=== PATIENT | female | born 1985 | race American Indian/Alaskan Native ===

== ENCOUNTER 2017-03-09 00:17 | Inpatient (IN) | payer MEDICAID ==
--- NOTE | 2017-03-09 02:21 | OBHP ---
Datetime: 03/09/2017 02:11 IP Adm Impression: Term, intrauterine ; No Active Labor IP Adm Impression Other: Previous Section X1 IP Admit Plan: Admit to unit; Initiate Section protocol Admit Comment, IP Provider: 31yo by Section in [place], No documented scar. She present s with pelvic pressure and pain. care at [facility], EDC- 03/10/17. [place]- irregular contractions, FHR- Category 1, Cx- 0/0/-3 Assessment: IUP at 40wks Previous Section X1 Plan: Admit to LND Prepare for a repeat Section. Pelvic Type - PN: Adequate Extremities - PN: Normal Abdomen - PN: Normal Back - PN: Normal Breast - PN: Normal Lungs - PN: Normal Heart - PN: Normal Thyroid - PN: Normal Neurologic - PN: Normal HEENT - PN: Normal General - PN: Normal Presentation-Admit: Vertex FHR - Baseline A Provider: 130 Membranes, Provider: Intact Contraction Comments Provider: Irregular Comments, ACOG Physical Exam: Abd: Soft, NT, BS- present Gestation - Est Wks by US: 40.0 EGA AdmitDate IP: 40.2 IP Chief Complaint: Uterine contractions; Maternal discomfort NICHD Variability Prov Fetus A: Moderate 6-25bpm NICHD Accel Fetus A IP Provider: [id number] FHR Category Provider Fetus A: Category I NICHD Decel Fetus A IP Provider: None Dilatation, Provider: 0 Effacement, Provider: 0 Station, Provider: -3 Genitourinary Exam: Normal DTRs - PN: Normal
[2017-03-09 02:24] VITALS: BMI 24.2
[2017-03-09] MEDS ORDERED: cefOXitin IV 2 gm in Dextrose 2 GM/50 ML BAG IVPB ONE ×2 (02:24→05:23)
[2017-03-09] MEDS ORDERED: Sodium Citrate/Citric Acid 15 ml Sol PO ONE (02:24)
[2017-03-09] MEDS ORDERED: Lactated Ringer's 1,000 ML IV SCH (02:30)
[2017-03-09 03:05] LABS: BASO % 0.3 % (0.0-2.0); EOS # 0.2 K/uL (0.0-0.7); EOS % 2.3 % (0.0-4.0); HEMATOCRIT 35.2 % (34.0-47.0); LYMPH # 1.6 K/uL (1.0-4.3); LYMPH % 18.3 % (20.0-40.0); MEAN CELL VOLUME 86.4 fL (81.0-99.0); MEAN CORPUSCULAR HEMOGLOBIN 29.7 pg (27.0-31.0); MEAN CORPUSCULAR HGB CONC 34.4 g/dL (33.0-37.0); MEAN PLATELET VOLUME 7.5 fL (7.2-11.7); MONO # 0.9 K/uL (0.0-0.8); MONO % 10.7 % (0.0-10.0); RED CELL DISTRIBUTION WIDTH 12.9 % (11.5-14.5); WHITE BLOOD COUNT 8.8 K/uL (4.8-10.8)
[2017-03-09 03:18] LABS: CHLORIDE 103 mmol/L (98-107); POTASSIUM 3.9 mmol/L (3.6-5.2); SODIUM 137 mmol/L (132-148)
[2017-03-09 03:20] LABS: BILIRUBIN,TOTAL 0.4 mg/dL (0.2-1.3); GFR AFRICAN-AMERICAN > 60
[2017-03-09 03:21] LABS: ALB/GLOB RATIO 1.1 (1.0-2.1); ALKALINE PHOSPHATASE 158 U/L (38-126); ALT/SGPT 20 U/L (9-52); AST/SGOT 18 U/L (14-36); BLOOD UREA NITROGEN 6 mg/dL (7-17); CALCIUM 9.3 mg/dl (8.6-10.4); CARBON DIOXIDE 19 mmol/L (22-30); GLUCOSE,RANDOM 83 mg/dL (65-105); TOTAL PROTEIN 7.1 g/dL (6.3-8.3)
[2017-03-09 03:28] LABS: RBC URINE 3 /hpf (0-3); URINE BACTERIA MOD (<OCC); URINE BILIRUBIN NEGATIVE (NEGATIVE); URINE BLOOD 2+ (NEGATIVE); URINE COLOR Yellow (YELLOW); URINE GLUCOSE (UA) NORMAL (Normal); URINE KETONE NEGATIVE (NEGATIVE); URINE LEUKOCYTE ESTERASE NEG Leu/uL (Negative); URINE PROTEIN NEGATIVE (NEGATIVE); URINE UROBILINOGEN NORMAL mg/dL (0.2-1.0); WBC URINE 1 /hpf (0-5)
[2017-03-09] MEDS ORDERED: Oxytocin 20 units in LR 2,000 ML IV ONE (05:23)
[2017-03-09] MEDS ORDERED: Sodium Citrate/Citric Acid 15 ml Sol ONE (05:23)
[2017-03-09] MEDS ORDERED: Morphine 1 mg/ml preservative-free Inj(Duramorph) ONE (06:14)
--- NOTE | 2017-03-09 07:30 | OBDS ---
DELIVERY PERSONNEL Delivery Doctor: Radha Davis MD Scrub Nurse: Cathy Alicea OBT Network Operations Lead: Layla Nichols RN Anesthesiologist: DR HERNANDEZ MATERNAL INFORMATION Delivery Anesthesia: Spinal Medications in Delivery: PITOCIN Estimated Blood Loss (ml): 500 Placenta Cultured: No Maternal Complications: None Provider Comments: Uncomplicated Repeat Section with delivery of a viable male with BW of 6Ib 10oz scores of 9 and 9. LABOR SUMMARY EDC: 03/10/2017 00:00 No. Babies in Womb: 1 STAGES OF LABOR Stage 3 hrs: 0 Stage 3 min: 1 CSECTION DELIVERY Primary Indication: Repeat Elective Uterine Closure: Double-layer closure BABY A INFORMATION Delivery Date/Time: 03/09/2017 06:36 Method of Delivery: Born in Route : No : N/A Forceps: N/A Vacuum Extraction: N/A Shoulder Dystocia : No SHOULDER DYSTOCIA BABY A Infant Delivery Date/Time: 03/09/2017 06:36 PRESENTATION/POSITION BABY A Presentation: Cephalic Cephalic Presentation: Vertex Vertex Position: Left Occipital Anterior Breech Presentation: N/A PLACENTA INFORMATION BABY A Placenta Delivery Time : 03/09/2017 06:37 Placenta Method of Delivery: Manual Removal Placenta Status: Delivered SCORES BABY A Heart Rate 1 min: >100 bpm Resp Effort 1 min: Good Cry Reflex Irritability 1 min: Cough or Sneeze or Pulls Away Muscle Tone 1 min: Active Motion Color 1 min: Body [place], Extremities Blue SCORE 1 MIN: 9 Heart Rate 5 min: >100 bpm Resp Effort 5 min: Good Cry Reflex Irritability 5 min: Cough or Sneeze or Pulls Away Muscle Tone 5 min: Active Motion Color 5 min: Body [place], Extremities Blue SCORE 5 MIN: 9 INFANT INFORMATION BABY A Gestational Age at Delivery: 40.2 Gestational Status: Term Infant Outcome : Liveborn Condition : Stable Infant Sex: Male IDENTIFICATION/MEDS BABY A ID Band Number: [id number] Sensor Applied: Yes Sensor Number: [id number] Sensor Location : Left Leg; Left Arm WEIGHT/LENGTH BABY A Birthweight (gms): 3005 Weight (lb): 6 Infant Weight (oz): 10 Infant Length Inches: 19.50 Length cms: 49.5 CORD INFORMATION BABY A No. Cord Vessels: 3 Nuchal Cord : N/A Cord Blood Taken: Yes Suction: Mouth; Nose
--- NOTE | 2017-03-09 07:32 | PCM.SURG1 ---
Surgeon's Initial Post Op Note - Surgeon's Notes Surgeon: Dr Davis Principal Secretary: Dr Bonner Type of Anesthesia: Spinal Anesthesia Administered By: Dr Navarro Pre-Operative Diagnosis: IUP at 40wks with a previous Section Operative Findings: Live Male BW of 6 Ibs 10oz ,with scores of 9 and 9.Delivered in cephalic presentation. The uterus , ovaries and fallopian tubes appeared normal. The uterus had a 2X1.5X2cm fibroid noule on the middle of the posterior wall of the uterus. IVF Intake 1300mls. EBL- 500mls. Urine output -200mls Post-Operative Diagnosis: Same as preop diagnosis Operation Performed: Repeat Low Transverse Section. Specimen/Specimens Removed: Umbilical cord blood Estimated Blood Loss: EBL {In ML}: 500 Post-Op Condition: Good Date of Surgery/Procedure: 03/09/17 Time of Surgery/Procedure: 07:33
[2017-03-09] MEDS: Prenatal Multivit/Folic Acid/Iron Tab PO SCH (09:56)
--- NOTE | 2017-03-09 14:22 | OP ---
PROCEDURE DATE: 03/09/2017 PREOPERATIVE DIAGNOSIS: Intrauterine at 40 weeks with a previous section x1. POSTOPERATIVE DIAGNOSIS: Intrauterine at 40 weeks with a previous section x1. PROCEDURE DONE: Repeat low transverse section, performed on 03/09/2017. SURGEON: Dr. Servando Davis. SAMPLE CASE PORTER: Dr. Dooley. Assistance to this procedure was needed for exposure of tissues and help in the delivery of the baby. The drilling assistant remained with the procedure throughout its entire length. FINDINGS: A live male with weight of 6 pounds 10 ounces, scores of 9 in the first and fifth minutes. Baby was delivered in cephalic presentation. The uterus, ovaries, and fallopian tubes appeared normal. The uterus had a 2 x 1.5 x 2 cm fibroid nodule in the middle portion of the posterior wall of the uterus. IV FLUID INTAKE: 1300 mL. ESTIMATED BLOOD LOSS: 500 mL. URINE OUTPUT: 200 mL. COMPLICATIONS: There were no complications. DESCRIPTION OF PROCEDURE: After obtaining informed consent, the patient was sent to the OR with IV running and Vazquez catheter in place. The patient was sat on the OR table and after adequate spinal anesthesia was placed in the supine position with a left lateral tilt. The patient was then prepped and draped in the usual sterile fashion. The old incisional scar was removed using a scalpel after which the incision was extended through the subcutaneous tissues until the rectus fascia was identified. Transverse incision was made in the rectus fascia, and this was extended to both sides by means of sharp dissection using Harper scissors. The rectus fascia was then from the underlying rectus muscles both superiorly and inferiorly by means of sharp dissection with Harper scissors. The rectus muscle was in the midline to expose the peritoneum, which was tented between 2 Trupti clamps and sharply entered using Metzenbaum scissors. Once the abdominal cavity was entered, the vesicouterine fold of peritoneum was identified and incised in the transverse fashion using a Metzenbaum scissors, and this was retracted inferiorly to expose the lower uterine segment. A low transverse incision was made using the scalpel. The incision was sent through the myometrial layer where the amniotic membranes were identified. The incision was then extended to both sides by means of a sharp dissection. The amniotic membranes were ruptured using a pickup forceps, and the baby which was positioned in the cephalic presentation was delivered. The mouth and nostrils were bulb suctioned, and the 3-vessel cord was clamped and cut. The baby was given to the nurse. Umbilical cord blood for analysis was obtained after which the placenta was removed from the uterine cavity. The uterus was then brought out of the abdominal cavity, and the uterine cavity cleaned of all debris using dry laparotomy pads. The uterine incision was then closed in 2 layers using Vicryl #0. The first layer in a running locked fashion and the second layer in a running fashion imbricating the first layer. Once this having completed and hemostasis assured, irrigation of the pelvis with warm normal saline was undertaken. All instruments and laparotomy pads were removed from the abdomen, and the uterus was returned into the abdominal cavity. Once hemostasis had been assured, attention was turned to the anterior abdominal wall which was closed in layers with 2-0 Vicryl for the peritoneum and the rectus muscles. The rectus fascia was brought together by means of #0 Vicryl. The subcutaneous tissue was reapproximated using #2-0 plain catgut. The skin was closed in a subcuticular fashion using #4-0 Biosyn. All counts of instruments, laparotomy pads, and needles used were correct x3, and the patient was sent to the recovery room awake and in stable condition. Servando Davis MD
[2017-03-09] MEDS: DiphenhydrAMINE 50 mg/ml Inj IVP PRN (21:10)
[2017-03-10] MEDS: DiphenhydrAMINE 50 mg/ml Inj IVP PRN ×2 (02:58→10:22)
[2017-03-10] MEDS ORDERED: Bisacodyl 5mg EC Tab PO ONE (07:44)
[2017-03-10] MEDS: Oxycodone/Acetaminophen 5/325 mg Tab PO PRN ×3 (08:06→20:27)
[2017-03-10 08:30] LABS: BASO # 0.1 K/uL (0.0-0.2); BASO % 1.3 % (0.0-2.0); EOS # 0.2 K/uL (0.0-0.7); EOS % 1.7 % (0.0-4.0); HEMATOCRIT 32.6 % (34.0-47.0); LYMPH # 1.2 K/uL (1.0-4.3); LYMPH % 10.7 % (20.0-40.0); MEAN CELL VOLUME 86.6 fL (81.0-99.0); MEAN CORPUSCULAR HEMOGLOBIN 29.3 pg (27.0-31.0); MEAN CORPUSCULAR HGB CONC 33.9 g/dL (33.0-37.0); MEAN PLATELET VOLUME 7.2 fL (7.2-11.7); MONO # 0.8 K/uL (0.0-0.8); MONO % 7.8 % (0.0-10.0); RED CELL DISTRIBUTION WIDTH 12.7 % (11.5-14.5); WHITE BLOOD COUNT 10.9 K/uL (4.8-10.8)
[2017-03-10] MEDS: Prenatal Multivit/Folic Acid/Iron Tab PO SCH (10:17)
--- NOTE | 2017-03-10 11:01 | OBPPN ---
Datetime: 03/10/2017 10:57 PP Pain Prov: Within normal limits PP Nausea Prov: Denies PP Flatus Prov: Yes PP BM Prov: No PP Heart Prov: Normal PP Lungs Prov: Normal PP Abdomen/Uterus Prov: Normal PP Lochia Prov: Normal PP Vulva/Perineum Prov: Normal PP CVA Tenderness Prov: Normal PP Extremities Prov: Normal PP C/S Incision Prov: Normal PP Progress Prov: Normal PP Impression Prov: Normal progression PP Plan Prov: Continue present management PP Progress Note Prov: S-patient states that her pain is well controlled.Breast feeding.Denies nause a, vomiting, headache, chest pain, shortness of breath, numbness or tingling in hands and feet.Tolera ting clears O-VSS afebrile Abdomen soft and nontender Fundus firm and below umbilicus Incision celan,d ry and intact extremities no calf tenderness A/P Patient s/p csection pod 1 doing well -advance diet -po pain meds -heplock -follow up am cbc -monitor closely
[2017-03-11] MEDS: Prenatal Multivit/Folic Acid/Iron Tab PO SCH (09:25)
[2017-03-11] MEDS: Oxycodone/Acetaminophen 5/325 mg Tab PO PRN ×3 (09:29→19:51)
[2017-03-12] MEDS: Oxycodone/Acetaminophen 5/325 mg Tab PO PRN (00:04)
[2017-03-12 08:29] VITALS: BP 108/72; PULSE 74; RESP 18; TEMP 97.5
[2017-03-12] MEDS: Prenatal Multivit/Folic Acid/Iron Tab PO SCH (09:11)
[2017-03-12 17:00] VITALS: O2SAT 99
--- NOTE | 2017-03-12 19:55 | OBDCSUM ---
Datetime: 03/12/2017 09:53 Discharged to, Provider: Home Follow up at, Provider: [facility] Disch Instr Activity: Normal activity Disch Instr Diet: Regular Discharge Diagnosis, Provider: Term Delivered Discharge Time: 03/12/2017 09:54 Follow up in weeks, Provider: March 19, 2017 Disch Referrals: None Contraception discussed, Prov: Yes Disch Activity Restrictions: No exercising; No lifting; No driving; Minimize walking; Minimize stair -climbing; No sexual activity; Nothing in vagina - [place], tampons, douche Discharge Diagnosis Prov Other: Status post repeat section Contraception counseling Contraception after Delivery: Undecided
--- NOTE | 2017-03-12 19:55 | OBPPN ---
Datetime: 03/12/2017 19:35 PP Pain Prov: Within normal limits PP Nausea Prov: Denies PP Flatus Prov: Yes PP BM Prov: No PP Breasts Prov: Normal PP Heart Prov: Normal PP Lungs Prov: Normal PP Abdomen/Uterus Prov: Normal PP Lochia Prov: Normal PP Vulva/Perineum Prov: Not Done PP CVA Tenderness Prov: Normal PP Extremities Prov: Normal PP C/S Incision Prov: Normal PP Progress Prov: Normal PP Comments Phys Exam Prov: Abdomen: (+) BS. Softly distended. Fundus firm, mobile, mild and approp riately tender, 2 FB below umbilicus. Mild lochia rubra All other systems reviewed and are negative PP Impression Prov: Normal progression PP Plan Prov: Discharge PP Progress Note Prov: [employer] specialist [place] [id number] Patient received in room 451 earlier this morning: attending to her . exclus ively. Reports incisional pain 8/10; after medications, 6/10. Voiding and ambulating without difficul ty. Denies nausea, vomiting, BM. P.E.: as above. WD in NAD. Awake, alert, oriented to time, person and place. Pleasant and cooperat kristi. - POD#1 H/H 11/32.6, Rh (-) Assessment: POD#3 31 y.o. P2, S/P repeat LTCS. Afebrile, vital signs stable. Returning GI and functions. Undecided re: contraception. Encouraged to consume fresh fruits and vegatables and prune /prune juice/senokot to facilitate BM. Clinically stable. Plan: 1) Discharge home 2) See full discharge instructions Vital Signs Provider PP: Reviewed; Within Normal Limits
--- NOTE | 2017-03-12 22:36 | OBPPN ---
Datetime: 03/12/2017 19:35 PP Progress Note Prov: [employer] guide ID [id number] Patient received in room 451 earlier this morning: attending to her . exclus ively. Reports incisional pain /10; after medications, /. Voiding and ambulating without difficul ty. Denies nausea, vomiting, BM. P.E.: as above. WD in NAD. Awake, alert, oriented to time, person and place. Pleasant and cooperat kristi. - POD#1 H/H 11/32.6, Rh (-) Assessment: POD#3 31 y.o. P2, S/P repeat LTCS. Afebrile, vital signs stable. Returning GI and functions. Rh (-) - S/P Rhogam. Undecided re: contraception. Encouraged to consume fresh fruits and vegatables and prune/prune juice/senokot to facilitate BM. Clinically stable. Plan: 1) Discharge home 2) See full discharge instructions
== END 2017-03-12 12:40 | disposition home or self-care (01) | DRG 766 ==
LOC: C.EROB 00:17 → C.4LDOR 02:00 → C.4D 04:54 → C.4M 09:45
PROVIDERS: ADMIT Obstetrics & Gynecology; ATTEND Obstetrics & Gynecology
PROC: 10D00Z1 Extraction of Products of Conception, Low, Open Approach (ICD-10-PCS; principal; 2017-03-09)
DX: O34.211 Maternal care for low transverse scar from previous cesarean delivery (principal); Z37.0 Single live birth; Z3A.40 40 weeks gestation of pregnancy